=== PATIENT | female | born 1945 | race Caucasian/White ===

== ENCOUNTER → 2023-12-19 11:01 | Outpatient (REF) | payer MEDICARE, SELFPAY ==
[2023-12-19 12:16] LABS: Urine Albumin Negative (Neg - Trace); Urine Bilirubin Negative (Negative); Urine Character Very Cloudy (Clear); Urine Color Straw; Urine Glucose Negative (Negative); Urine Ketone Negative (Negative); Urine Leukocyte 2+ (Negative); Urine Nitrite Negative (Negative); Urine Occult Blood Trace (Negative); Urine Specific Gravity 1.005 (<1.030); Urine Urobilinogen Negative (Neg - 1+)
[2023-12-19 12:18] LABS: % Basophils 1.4 % (0-2); % Eosinophils 18.2 % (0-6); % Immature Granulocytes 0.2 % (0-0.5); % Lymphocytes 22.9 % (20.5-51.1); % Monocytes 4.5 % (1.7-9.3); % Neutrophils 52.8 % (42.2-75.2); Absolute Basophils 0.1 10^3/uL (0-0.2); Absolute Eosinophils 0.9 10^3/uL (0-0.7); Absolute Lymphocytes 1.1 10^3/uL (1.2-3.4); Absolute Monocytes 0.2 10^3/uL (0.1-0.6); Absolute Neutrophils 2.6 10^3/uL (1.4-6.5); Hemoglobin 10.1 g/dL (12.0-16.0); Mean Corp Hgb Conc. 32.6 g/dL (33.0-37.0); Mean Corpuscular Hgb 33.4 pg (27.0-31.0); Mean Corpuscular Volume 102.6 fL (81.0-99.0); Mean Platelet Volume 10.1 fL (7.4-10.4); Nucleated Red Blood Cells % 0 %; Platelet Count 194 10^3/uL (130-400); Red Blood Cell Count 3.02 10^6/uL (4.20-5.40); Red Cell Dist. Width 15.4 % (11.5-14.5); White Blood Cell Count 4.8 10^3/uL (4.8-10.8)
[2023-12-19 12:29] LABS: ALT (SGPT) 22 U/L (0-35); AST (SGOT) 20 U/L (14-36); Albumin 3.5 g/dl (3.5-5.0); Alkaline Phosphatase 52 U/L (38-126); Blood Urea Nitrogen 28 mg/dl (7-17); Calcium 9.2 mg/dl (8.4-10.2); Carbon Dioxide 27 mmol/L (22-30); Chloride 101 mmol/L (98-107); Glucose 89 mg/dl (70-99); HDL Cholesterol 61 mg/dl; LDL Cholesterol, Calculated 127 mg/dl; Sodium 131 mmol/L (135-145); Total Bilirubin 0.4 mg/dl (0.2-1.3); Total Cholesterol 204 mg/dl (50-199); Total Protein 5.6 g/dl (6.3-8.2); Triglyceride 84 mg/dl (10-149); Very Low Density Lipoprotein 16 mg/dl (0-30); eGFR 51.11
[2023-12-19 12:37] LABS: Urine Bacteria Few (Negative); Urine Squamous Cell 0-2 /LPF (Few)
[2023-12-19 12:38] LABS: Urine Red Blood Cell 0-2 /HPF (0-2); Urine White Cell 50-60 /HPF (0-5)
[2023-12-19 12:45] LABS: Free T4 1.37 ng/dl (0.78-2.19); Vitamin D, 25-OH*** 65.7 ng/mL (30-80)
[2023-12-19 12:58] LABS: TSH 3.44 uIU/ml (0.47-4.68)
[2023-12-19 13:18] LABS: Vitamin B12 267 pg/ml (239-931)
[2023-12-19 13:20] LABS: Glycohemoglobin (HgbA1c) 5.3 % (4.0-5.6)
== END ==
LOC: OLABMERCHI 11:01
PROVIDERS: ATTENDING PHYSICIAN Nurse Practitioner Gerontology; FAMILY PHYSICIAN Hospitalist
DX: R94.4 Abnormal results of kidney function studies (principal); E78.5 Hyperlipidemia, unspecified; N39.0 Urinary tract infection, site not specified; D51.9 Vitamin B12 deficiency anemia, unspecified; E11.9 Type 2 diabetes mellitus without complications; E55.9 Vitamin D deficiency, unspecified; E03.9 Hypothyroidism, unspecified; D64.9 Anemia, unspecified
CPT/HCPCS: 36415; 80053; 80061; 81003; 81015; 82306; 82607; 83036; 84439; 84443; 85025; 87077; 87086; 87186

== ENCOUNTER → 2024-04-16 10:39 | Outpatient (REF) | payer MEDICARE, SELFPAY ==
[2024-04-16 13:01] LABS: Urine Albumin Trace (Neg - Trace); Urine Bilirubin Negative (Negative); Urine Character Clear (Clear); Urine Color Yellow; Urine Glucose Negative (Negative); Urine Ketone Negative (Negative); Urine Leukocyte 2+ (Negative); Urine Nitrite Positive (Negative); Urine Occult Blood Negative (Negative); Urine Urobilinogen Negative (Neg - 1+)
[2024-04-16 13:46] LABS: Urine Calcium Oxalate Crystals Present
[2024-04-16 13:47] LABS: Urine Bacteria Moderate (Negative)
[2024-04-16 13:48] LABS: Urine Red Blood Cell 0-2 /HPF (0-2)
== END ==
LOC: OLABMERCHI 10:39
PROVIDERS: ATTENDING PHYSICIAN Hospitalist
DX: N39.0 Urinary tract infection, site not specified (principal)
CPT/HCPCS: 81003; 81015; 87077; 87086

== ENCOUNTER 2024-05-07 17:51 | Emergency (ER) | payer MEDICARE, SELFPAY ==
[2024-05-07] VITALS (10 sets, daily range): BP systolic 112–155; BP diastolic 63–88; PULSE 68–88; BMI 21.9
[2024-05-07 18:11] LABS: % Basophils 0.6 % (0-2); % Eosinophils 2.9 % (0-6); % Immature Granulocytes 1.2 % (0-0.5); % Lymphocytes 9.9 % (20.5-51.1); % Monocytes 12.1 % (1.7-9.3); % Neutrophils 73.3 % (42.2-75.2); Absolute Basophils 0.1 10^3/uL (0-0.2); Absolute Eosinophils 0.3 10^3/uL (0-0.7); Absolute Immature Granulocytes 0.1 10^3/uL (0-0.05); Absolute Monocytes 1.3 10^3/uL (0.1-0.6); Absolute Neutrophils 7.7 10^3/uL (1.4-6.5); Hematocrit 30.1 % (37.0-47.0); Hemoglobin 10.2 g/dL (12.0-16.0); Mean Corp Hgb Conc. 33.9 g/dL (33.0-37.0); Mean Corpuscular Volume 100.3 fL (81.0-99.0); Mean Platelet Volume 9.3 fL (7.4-10.4); Nucleated Red Blood Cells % 0 %; Platelet Count 289 10^3/uL (130-400); Red Cell Dist. Width 14.6 % (11.5-14.5); White Blood Cell Count 10.5 10^3/uL (4.8-10.8)
[2024-05-07 18:24] LABS: ALT (SGPT) 15 U/L (0-35); AST (SGOT) 15 U/L (14-36); Alkaline Phosphatase 243 U/L (38-126); Blood Urea Nitrogen 16 mg/dl (7-17); Calcium 8.8 mg/dl (8.4-10.2); Chloride 97 mmol/L (98-107); Glucose 91 mg/dl (70-99); Potassium 3.5 mmol/L (3.5-5.1); Sodium 131 mmol/L (135-145); Total Bilirubin 0.6 mg/dl (0.2-1.3)
[2024-05-07 18:32] LABS: Albumin 3.1 g/dl (3.5-5.0); Carbon Dioxide 20 mmol/L (22-30); Estimated Creatinine Clearance 34 ml/min; Total Protein 5.3 g/dl (6.3-8.2); eGFR 56.95
--- NOTE | 2024-05-07 18:49 | ED.GENMED ---
History of Present Illness
General
Chief Complaint: Blood Pressure Problem
Source: patient
Exam Limitations: none
Time Seen by Provider: 05/07/24 18:45
History of Present Illness
History of Present Illness:
See MDM
Past History
Past History
ED Past Medical History: HTN
ED Past Surgical History: None
Phy Exam
Physical Exam
Physical Exam:
See MDM
Course
Orders/Labs/Results
Orders:
Orders
05/07/24 17:53
Electrocardiogram (*1) Urgent
Reason for Study: Vertigo / Dizzy
05/07/24 17:54
EKG- Treatment ONCE
05/07/24 18:04
Complete Blood Count/With Diff Urgent
Comprehensive Metabolic Panel Urgent
05/07/24 18:48
Tramadol HCl [Ultram] 25 mg PO NOW STA
Lumbar Spine Complete, 4 View [CR Lumbar Spine Comp Min 4 Vw*] Urgent
Comment:
Reason For Exam: low back pain
Abnormal Lab Results
05/07/24
18:04
RBC 3.00 L 10^6/uL
(4.20-5.40)
Hgb 10.2 L g/dL
(12.0-16.0)
Hct 30.1 L %
(37.0-47.0)
MCV 100.3 H fL
(81.0-99.0)
MCH 34.0 H pg
(27.0-31.0)
RDW 14.6 H %
(11.5-14.5)
Abs Immat Gran (auto) 0.1 H 10^3/uL
(0-0.05)
Absolute Neuts (auto) 7.7 H 10^3/uL
(1.4-6.5)
Absolute Lymphs (auto) 1.0 L 10^3/uL
(1.2-3.4)
Absolute Monos (auto) 1.3 H 10^3/uL
(0.1-0.6)
Immature Gran % 1.2 H %
(0-0.5)
Lymphocytes % 9.9 L %
(20.5-51.1)
Monocytes % 12.1 H %
(1.7-9.3)
Sodium 131 L mmol/L
(135-145)
Chloride 97 L mmol/L
(98-107)
Carbon Dioxide 20 L mmol/L
(22-30)
Alkaline Phosphatase 243 H U/L
(38-126)
Total Protein 5.3 L g/dl
(6.3-8.2)
Albumin 3.1 L g/dl
(3.5-5.0)
05/07/24 18:04
05/07/24 18:04
Vital Signs
Initial and Last Documented VS:
Initial Vital Signs
Temp Pulse Resp BP Pulse Ox
97.7 F 73 16 124/70 95
05/07/24 17:55 05/07/24 17:55 05/07/24 17:55 05/07/24 17:55 05/07/24 17:55
Last Documented Vital Signs
Temp Pulse Resp BP Pulse Ox
97.7 F 71 16 127/63 95
05/07/24 17:55 05/07/24 19:00 05/07/24 19:00 05/07/24 19:00 05/07/24 17:55
MDM/Problems Addressed
Differential Diagnosis Includes:
HPI and MDM Narrative:
79-year-old female presenting with weakness and fatigue. She just got over a UTI. She has not been eating much over the past few days due to worsening back pain. Physical therapy noted that she had low blood pressure and sent in for evaluation.
Patient was started on IV fluids by EMS and patient feeling somewhat better. She still complains of lower back pain
Physical exam
General: Weak and frail
HEENT: protecting airway. Mildly dry mucous membranes
Neck: appears supple
CV: No evidence of cyanosis
Resp: No accessory muscle use
Abd: Non-distended and nontender
Back: Mild bilateral paralumbar muscular tenderness
Extremities: No deformities
Neuro: alert
Psych: Normal affect
Skin: Intact
Problems Addressed including Acute and Chronic Conditions affecting care:
1. Orthostasis
Acuity: acute
Prognosis: stable
Details: Likely in the setting of decreased p.o. intake. Symptoms improving with IV fluids
2. Back pain
Acuity: acute
Prognosis: stable
Details: Will obtain lumbar x-ray to rule out any sort of compression fracture or lytic lesion
Updates
X-ray does show compression deformities of the lumbar spine. It is not sure if this is new or old. After tramadol, patient feeling much better.
Differential Diagnosis (but not limited to): Dehydration, orthostasis, musculoskeletal back pain
Testing considered: Repeat urinalysis
Drug therapy (if applicable): OTC meds, please see d/c instruction regarding Rx drugs
Amount and/or Complexity of Data Reviewed
Clinical info obtained from: Patient
External data reviewed: N/A
Labs I independently reviewed (but not limited to): Anemia
Radiology: X-ray independently reviewed: Lumbar x-ray shows compression deformities
Pulse Ox: not hypoxic
EKG independently reviewed: N/A
Superintendent System Operation: N/A
Critical Care: N/A
Risk of Complication:
Social Determinants of health: Good social support
Discussed with other providers: N/A
Escalation of Care includes Admit/Obs: After being observed in the Emergency Department, pt stable for discharge.
Occasional wrong word or 'sound a like' substitutions may have occurred due to the inherent limitations of voice recognition software. Read the chart carefully and recognize, using context, where substitutions have occurred.
*Critical Care Note
Total Time (30-74mins, 75-104mins- exclusive of procedures): Not Applicable
ED Attending Note
-
Portions of this chart may have been created with voice recognition software.� Occasional wrong word or��sound alike� substitutions may have occurred due to the inherent limitations of voice recognition software.
Discharge Plan
Departure
Patient Disposition: Home (Routine Discharge)
Date of Disposition: 05/07/24
Time of Disposition: 19:41
Patient with high blood pressure during this ER visit?: No
Discharge Problem:
Acute dehydration, Compression fracture of lumbar spine, non-traumatic
Instructions: Dehydration, Adult ED
Prescriptions:
New
tramadol 50 mg tablet
25 mg PO BID PRN (Reason: pain) Qty: 5 0RF
docusate sodium [Colace] 100 mg capsule
100 mg PO BID Qty: 14 0RF
Referrals:
UNKNOWN - PT DOES,NOT KNOW [Family Provider] -
Activity Restrictions/Additional Instructions:
Please return for any worsening symptoms.
You may return at any time if you have further concerns.
Please follow up with your doctor at the first available appointment, preferably this week.
You were given a prescription for narcotics. If you require this pain medicine, please take a daily [id number] stool softener to avoid constipation.
Thank you for choosing [facility].
Interventions
Interventions:
*Risk Screen - Suicide Last Done: 05/07/24 18:01
*General Assessment Last Done: 05/07/24 18:01
*Neglect/Abuse Screening Last Done: 05/07/24 18:01
*ED COVID-19 Vaccine History Last Done: 05/07/24 18:01
ED- Cardiac Assessment Last Done: 05/07/24 18:03
ED- Neurological Assessment Last Done: 05/07/24 18:03
ED- Pulmonary Assessment Last Done: 05/07/24 18:03
Discharge Date and Time
Print Language: BULGARIAN
[2024-05-07] MEDS: ULTRAM 25 MG PO (19:19)
== END 2024-05-07 22:42 | disposition home or self-care (01) ==
LOC: EMR 17:51
PROVIDERS: EMERGENCY PHYSICIAN Student in an Organized Health Care Education/Training Program
DX: M80.08XA Age-related osteoporosis with current pathological fracture, vertebra(e), initial encounter for fracture (principal); E86.0 Dehydration
CPT/HCPCS: 99285; 72110; 80053; 85025; 93005

== ENCOUNTER 2024-06-28 12:12 | Emergency (ER) | payer MEDICARE, SELFPAY ==
[2024-06-28 12:14] VITALS: BMI 21.4
[2024-06-28 12:21] VITALS: BP 119/70
--- NOTE | 2024-06-28 12:55 | ED.GENMED ---
History of Present Illness
General
Chief Complaint: Fall
Time Seen by Provider: 06/28/24 12:18
History of Present Illness
History of Present Illness:
79-year-old female with history of rheumatoid arthritis and osteoarthritis presenting after fall. Patient reports prior to arrival she was doing laundry and has a collapsible laundry basket. The basket collapsed and she fell forward, striking her
head on a piece of furniture. Denies loss of consciousness. Denies any visual changes. Denies her extremities. She was able to get up, notes a skin tear to her left elbow without significant pain. Denies chest pain, difficulty breathing, back
pain. Denies headache. Denies fever or recent illness. Denies additional acute medical complaints
Past History
Past History
ED Past Medical History: HTN
ED Past Surgical History: None
Phy Exam
Physical Exam
Physical Exam:
General: Well-appearing, no clinical signs of dehydration, nontoxic and in no acute distress
HEENT: protecting airway.
Head: no signs of trauma
Neck: appears supple, no midline tenderness
CV: Normal heart rate, regular rhythm, no evidence of cyanosis
Resp: No accessory muscle use, no increased work of breathing
Abd: Soft and non-distended, no tenderness to palpation,
Extremities: No deformities, no swelling, no erythema, pulses and sensation intact. Mild skin tear to the left elbow with range of motion intact
Neuro: alert, no focal neurologic deficit
: deferred
Rectal: deferred
Psych: Normal affect
Skin: Intact
Course
Orders/Labs/Results
Orders:
Orders
06/28/24 12:41
CT Head W/o Iv Contrast Urgent
Comment:
Reason For Exam: fall, head strike
Vital Signs
Initial and Last Documented VS:
Initial Vital Signs
Temp Pulse Resp BP Pulse Ox
97.6 F 70 20 119/70 96
06/28/24 12:21 06/28/24 12:21 06/28/24 12:21 06/28/24 12:21 06/28/24 12:21
Last Documented Vital Signs
Temp Pulse Resp BP Pulse Ox
97.6 F 70 20 95/51 97
06/28/24 12:21 06/28/24 12:21 06/28/24 12:21 06/28/24 14:00 06/28/24 14:45
MDM/Problems Addressed
MDM/Problems Addressed:
79-year-old female presenting after a fall. Vital signs are normal.
On exam patient is well-appearing, no acute distress or discomfort. Mechanism of fall appears mechanical in nature, patient denying any prodromal symptoms to the fall. No significant signs of head trauma or injuries on examination. No midline
cervical neck tenderness. However given patient's age and very frail bones, known history of arthritis, will obtain CT brain imaging. Patient declining any pain medications at this time.
CT brain without acute intracranial abnormality. Patient remains hemodynamically stable. Feel stable for discharge with continued outpatient supportive therapy. Return precautions discussed and patient verbalized understanding
*Critical Care Note
Total Time (30-74mins, 75-104mins- exclusive of procedures): Not Applicable
ED Attending Note
-
Portions of this chart may have been created with voice recognition software.� Occasional wrong word or��sound alike� substitutions may have occurred due to the inherent limitations of voice recognition software.
Discharge Plan
Departure
Prescriptions:
No Action
metoprolol succinate 50 mg Tablet Extended Release 24 Hr
50 mg PO DAILY
lisinopril 20 mg Tablet
20 mg PO DAILY
oxybutynin chloride 5 mg Tablet Extended Release 24hr
5 mg PO DAILY
folic acid 1 mg Tablet
1 mg PO DAILY
furosemide [Lasix] 20 mg Tablet
20 mg PO DAILY
ergocalciferol (vitamin D2) [Vitamin D2] 1,250 mcg (50,000 unit) Capsule
1,250 mcg PO QWEEK
escitalopram oxalate [Lexapro] 10 mg Tablet
10 mg PO DAILY
Referrals:
UNKNOWN - PT DOES,NOT KNOW [Family Provider] -
Interventions
Interventions:
*Risk Screen - Suicide Last Done: 06/28/24 12:18
*General Assessment Last Done: 06/28/24 12:18
*Neglect/Abuse Screening Last Done: 06/28/24 12:18
ED- Fall Risk Assessment Last Done: 06/28/24 12:19
*ED COVID-19 Vaccine History Last Done: 06/28/24 12:18
ED-Musculoskeletal Assessment Last Done: 06/28/24 12:20
ED- Neurological Assessment Last Done: 06/28/24 12:20
ED-Skin Assessment Last Done: 06/28/24 12:21
Discharge Date and Time
Print Language: SAUDI ARABIAN
[2024-06-28 13:00] VITALS: BP 107/59
[2024-06-28 14:00] VITALS: BP 95/51
[2024-06-28 16:04] VITALS: BP 129/60
[2024-06-28 17:00] VITALS: BP 125/71
[2024-06-28 18:00] VITALS: BP 121/66
== END 2024-06-28 18:33 | disposition home or self-care (01) ==
LOC: EMR 12:12
PROVIDERS: EMERGENCY PHYSICIAN Student in an Organized Health Care Education/Training Program
DX: S51.012A Laceration without foreign body of left elbow, initial encounter (principal); W01.190A Fall on same level from slipping, tripping and stumbling with subsequent striking against furniture, initial encounter; I10 Essential (primary) hypertension; M06.9 Rheumatoid arthritis, unspecified
CPT/HCPCS: 99284; 70450

== ENCOUNTER → 2024-11-02 13:47 | Outpatient (REF) | payer MEDICARE, SELFPAY ==
[2024-11-02 15:42] LABS: % Basophils 1.8 % (0-2); % Eosinophils 9.7 % (0-6); % Immature Granulocytes 0.2 % (0-0.5); % Lymphocytes 15.3 % (20.5-51.1); % Monocytes 11.7 % (1.7-9.3); % Neutrophils 61.3 % (42.2-75.2); Absolute Basophils 0.1 10^3/uL (0-0.2); Absolute Eosinophils 0.5 10^3/uL (0-0.7); Absolute Lymphocytes 0.8 10^3/uL (1.2-3.4); Absolute Monocytes 0.6 10^3/uL (0.1-0.6); Absolute Neutrophils 3.1 10^3/uL (1.4-6.5); Hematocrit 36.3 % (37.0-47.0); Hemoglobin 11.9 g/dL (12.0-16.0); Mean Corp Hgb Conc. 32.8 g/dL (33.0-37.0); Mean Corpuscular Hgb 34.6 pg (27.0-31.0); Mean Corpuscular Volume 105.5 fL (81.0-99.0); Mean Platelet Volume 9.9 fL (7.4-10.4); Nucleated Red Blood Cells % 0 %; Platelet Count 219 10^3/uL (130-400); Red Blood Cell Count 3.44 10^6/uL (4.20-5.40); Red Cell Dist. Width 12.9 % (11.5-14.5)
[2024-11-02 15:57] LABS: ALT (SGPT) 14 U/L (0-35); AST (SGOT) 16 U/L (14-36); Albumin 4.3 g/dl (3.5-5.0); Alkaline Phosphatase 53 U/L (38-126); Blood Urea Nitrogen 11 mg/dl (7-17); Calcium 9.4 mg/dl (8.4-10.2); Carbon Dioxide 29 mmol/L (22-30); Chloride 103 mmol/L (98-107); Glucose 90 mg/dl (70-99); Potassium 4.8 mmol/L (3.5-5.1); Sodium 139 mmol/L (135-145); Total Bilirubin 0.7 mg/dl (0.2-1.3); Total Protein 6.5 g/dl (6.3-8.2); eGFR > 60.00
[2024-11-02 15:58] LABS: Erythrocyte Sed Rate 6 mm/hour (0-20)
[2024-11-02 16:00] LABS: C-Reactive Protein < 5.00 mg/L (0.0-10.00)
[2024-11-02 16:10] LABS: IgA 56 mg/dl (70-400); IgG 701 mg/dl (700-1600); IgM 47 mg/dl (40-230)
[2024-11-02 16:32] LABS: TSH 2.17 uIU/ml (0.47-4.68)
[2024-11-02 18:36] LABS: Hepatitis B Core Ab, Total Negative (Negative); Hepatitis C Antibody Negative (Negative)
[2024-11-02 19:19] LABS: Hepatitis B Surface Antigen Negative (Negative)
[2024-11-03 12:33] LABS: Rheumatoid Agglutinin Less Than 10 IU (<10 IU)
[2024-11-04 08:50] LABS: Intact PTH 162.2 pg/ml (13.6-85.8)
[2024-11-05 02:32] LABS: CCP Antibody IgG/IgA 11 Units (0-19)
== END ==
LOC: RAD 13:47
PROVIDERS: ATTENDING PHYSICIAN Student in an Organized Health Care Education/Training Program
DX: E67.3 Hypervitaminosis D (principal); M05.9 Rheumatoid arthritis with rheumatoid factor, unspecified; M81.0 Age-related osteoporosis without current pathological fracture; S22.000S Wedge compression fracture of unspecified thoracic vertebra, sequela; S32.000S Wedge compression fracture of unspecified lumbar vertebra, sequela; S32.10XS Unspecified fracture of sacrum, sequela; Z79.899 Other long term (current) drug therapy; R22.41 Localized swelling, mass and lump, right lower limb; M25.40 Effusion, unspecified joint
CPT/HCPCS: 36415; 80053; 82784; 83970; 84155; 84165; 84443; 85025; 85652; 86140; 86200; 86430; 86704; 86803; 87340; 93971

== ENCOUNTER → 2024-12-07 13:14 | Outpatient (REF) | payer MEDICARE, SELFPAY ==
[2024-12-07 13:56] LABS: % Basophils 1.3 % (0-2); % Eosinophils 11.1 % (0-6); % Immature Granulocytes 0.2 % (0-0.5); % Lymphocytes 18.6 % (20.5-51.1); % Monocytes 11.3 % (1.7-9.3); % Neutrophils 57.5 % (42.2-75.2); Absolute Basophils 0.1 10^3/uL (0-0.2); Absolute Eosinophils 0.7 10^3/uL (0-0.7); Absolute Lymphocytes 1.1 10^3/uL (1.2-3.4); Absolute Monocytes 0.7 10^3/uL (0.1-0.6); Absolute Neutrophils 3.5 10^3/uL (1.4-6.5); Hematocrit 37.1 % (37.0-47.0); Hemoglobin 12.4 g/dL (12.0-16.0); Mean Corp Hgb Conc. 33.4 g/dL (33.0-37.0); Mean Corpuscular Hgb 33.8 pg (27.0-31.0); Mean Corpuscular Volume 101.1 fL (81.0-99.0); Mean Platelet Volume 9.7 fL (7.4-10.4); Nucleated Red Blood Cells % 0 %; Platelet Count 236 10^3/uL (130-400); Red Blood Cell Count 3.67 10^6/uL (4.20-5.40)
[2024-12-07 14:04] LABS: Erythrocyte Sed Rate 5 mm/hour (0-20)
[2024-12-07 14:45] LABS: ALT (SGPT) 11 U/L (0-35); AST (SGOT) 14 U/L (14-36); Albumin 4.3 g/dl (3.5-5.0); Alkaline Phosphatase 44 U/L (38-126); Blood Urea Nitrogen 19 mg/dl (7-17); Calcium 9.9 mg/dl (8.4-10.2); Carbon Dioxide 25 mmol/L (22-30); Chloride 101 mmol/L (98-107); Glucose 91 mg/dl (70-99); Potassium 4.5 mmol/L (3.5-5.1); Sodium 134 mmol/L (135-145); Total Bilirubin 0.6 mg/dl (0.2-1.3); Total Protein 6.6 g/dl (6.3-8.2); eGFR > 60.00
[2024-12-07 14:50] LABS: C-Reactive Protein < 5.00 mg/L (0.0-10.00)
[2024-12-07 15:06] LABS: Vitamin D, 25-OH*** 64.4 ng/mL (30-80)
[2024-12-09 12:35] LABS: Intact PTH 68.2 pg/ml (13.6-85.8)
== END ==
LOC: REG 13:14
PROVIDERS: ATTENDING PHYSICIAN Student in an Organized Health Care Education/Training Program; FAMILY PHYSICIAN Hospitalist
DX: D84.9 Immunodeficiency, unspecified (principal); E67.3 Hypervitaminosis D; M05.9 Rheumatoid arthritis with rheumatoid factor, unspecified; M81.0 Age-related osteoporosis without current pathological fracture; R22.41 Localized swelling, mass and lump, right lower limb; R60.0 Localized edema; S22.000S Wedge compression fracture of unspecified thoracic vertebra, sequela; Z79.899 Other long term (current) drug therapy
CPT/HCPCS: 36415; 80053; 82306; 82784; 83521; 83970; 84155; 84156; 84165; 85025; 85652; 86140; 86334; 86335

== ENCOUNTER → 2025-02-17 11:19 | Outpatient (REF) | payer MEDICARE, SELFPAY ==
[2025-02-17 14:02] LABS: Urine Character Clear (Clear)
[2025-02-17 14:42] LABS: Urine Red Blood Cell 0-2 /HPF (0-2); Urine Squamous Cell 0-2 /LPF (Few); Urine White Cell 16-20 /HPF (0-5)
== END ==
LOC: OLABMERCHI 11:19
PROVIDERS: ATTENDING PHYSICIAN Hospitalist
DX: N39.0 Urinary tract infection, site not specified (principal); R30.0 Dysuria
CPT/HCPCS: 81003; 81015; 87077; 87086; 87186

== ENCOUNTER → 2025-02-26 15:29 | Outpatient (REF) | payer MEDICARE, SELFPAY ==
[2025-02-26 16:42] LABS: Hematocrit 36.2 % (37.0-47.0); Hemoglobin 12.2 g/dL (12.0-16.0); Mean Corp Hgb Conc. 33.7 g/dL (33.0-37.0); Mean Corpuscular Volume 101.7 fL (81.0-99.0); Nucleated Red Blood Cells % 0 %; Platelet Count 270 10^3/uL (130-400); Red Cell Dist. Width 13.2 % (11.5-14.5)
[2025-02-26 17:04] LABS: ALT (SGPT) 11 U/L (0-35); AST (SGOT) 13 U/L (14-36); Albumin 4.3 g/dl (3.5-5.0); Alkaline Phosphatase 49 U/L (38-126); Blood Urea Nitrogen 13 mg/dl (7-17); Calcium 9.2 mg/dl (8.4-10.2); Carbon Dioxide 21 mmol/L (22-30); Chloride 104 mmol/L (98-107); Glucose 125 mg/dl (70-99); Potassium 4.6 mmol/L (3.5-5.1); Sodium 132 mmol/L (135-145); Total Protein 6.6 g/dl (6.3-8.2); eGFR > 60.00
[2025-02-26 17:08] LABS: C-Reactive Protein < 5.00 mg/L (0.0-10.00)
[2025-02-26 17:24] LABS: Vitamin D, 25-OH*** 45.3 ng/mL (30-80)
[2025-03-02 12:45] LABS: 24 Hour Urine Total Volume Random mL; Urine Collection Length Random hr
== END ==
LOC: REG 15:29
PROVIDERS: ATTENDING PHYSICIAN Student in an Organized Health Care Education/Training Program; FAMILY PHYSICIAN Hospitalist
DX: D84.9 Immunodeficiency, unspecified (principal); E67.3 Hypervitaminosis D; M05.9 Rheumatoid arthritis with rheumatoid factor, unspecified; M81.0 Age-related osteoporosis without current pathological fracture; R22.41 Localized swelling, mass and lump, right lower limb; R60.0 Localized edema; S32.10XS Unspecified fracture of sacrum, sequela; Z79.899 Other long term (current) drug therapy
CPT/HCPCS: 36415; 80053; 82306; 82784; 83520; 83521; 83970; 84155; 84156; 84165; 85025; 85652; 86140; 86334; 86335

== ENCOUNTER → 2025-03-11 09:44 | Outpatient (REF) | payer MEDICARE, SELFPAY ==
[2025-03-11 10:58] LABS: ALT (SGPT) 14 U/L (0-35); AST (SGOT) 13 U/L (14-36); Albumin 3.7 g/dl (3.5-5.0); Alkaline Phosphatase 38 U/L (38-126); Blood Urea Nitrogen 18 mg/dl (7-17); Calcium 8.9 mg/dl (8.4-10.2); Carbon Dioxide 22 mmol/L (22-30); Chloride 106 mmol/L (98-107); Glucose 87 mg/dl (70-99); Potassium 4.8 mmol/L (3.5-5.1); Sodium 133 mmol/L (135-145); Total Protein 5.8 g/dl (6.3-8.2); eGFR > 60.00
== END ==
LOC: OLABMERCHI 09:44
PROVIDERS: ATTENDING PHYSICIAN Hospitalist
DX: E87.1 Hypo-osmolality and hyponatremia (principal)
CPT/HCPCS: 36415; 80053

== ENCOUNTER → 2025-03-24 11:59 | Outpatient (REF) | payer MEDICARE, SELFPAY ==
[2025-03-24 12:49] LABS: Hematocrit 39.5 % (37.0-47.0); Hemoglobin 12.7 g/dL (12.0-16.0); Mean Corp Hgb Conc. 32.2 g/dL (33.0-37.0); Mean Corpuscular Volume 104.2 fL (81.0-99.0); Nucleated Red Blood Cells % 0 %; Platelet Count 255 10^3/uL (130-400); Red Cell Dist. Width 14.3 % (11.5-14.5)
[2025-03-24 13:35] LABS: LDH 265 U/L (120-246)
== END ==
LOC: REG 11:59
PROVIDERS: ATTENDING PHYSICIAN Internal Medicine Hematology & Oncology; FAMILY PHYSICIAN Hospitalist
DX: C91.10 Chronic lymphocytic leukemia of B-cell type not having achieved remission (principal); D50.9 Iron deficiency anemia, unspecified; M06.9 Rheumatoid arthritis, unspecified
CPT/HCPCS: 36415; 82784; 83615; 85025